=== PATIENT | male | born 1990 | race Caucasian/White ===

== ENCOUNTER 2017-11-07 17:56 | Emergency (ER) | payer OTHER ==
[2017-11-07 18:15] VITALS: BP 126/72
--- NOTE | 2017-11-07 19:29 | ED Physician Documentation ---
History of Present Illness - Stated complaint Stated Complaint: JAW PX - Chief complaint Chief Complaint: General - History obtained from History obtained from: Patient - History of Present Illness Timing: Other (For the last 12 days he had severe pain especially with chewing over the right TMJ and a feeling like his teeth do not match up correctly. He was seen by a dentist who felt there was nothing wrong and he is being referred to maxillofacial surgeon I think, but despite ibuprofen he has severe pain. There is no facial swelling or fever.) Review of Systems Constitutional: denies: Fever, Chills Nose: denies: Rhinorrhea / runny nose, Congestion Throat: denies: Sore throat Cardiac: denies: Chest pain / pressure, Palpitations PD PAST MEDICAL HISTORY - Past Medical History Past Medical History: Yes Cardiovascular: None Respiratory: None Neuro: None Endocrine/Autoimmune: None GI: None : None HEENT: None Psych: None Musculoskeletal: None Derm: None - Past Surgical History Past Surgical History: Yes - Present Medications Home Medications: Ambulatory Orders Medication Instructions Recorded Confirmed HYDROcod/ACETAM 5/325 [[place] 5/325] 1 - 2 ea PO Q6H PRN #15 tablet 11/07/17 - Social History Does the pt smoke?: No Smoking Status: Never smoker Does the pt drink ETOH?: Yes ETOH Use: Wine, Beer, Liquor Does the pt have substance abuse?: Yes - Immunizations Immunizations are current?: Yes - POLST Patient has POLST: No PD ED PE NORMAL - Vitals Vital signs reviewed: Yes - General General: Alert and oriented X 3, No acute distress - HEENT HEENT: Ears normal, Other (I do not see any malocclusion of the teeth, he has a lot of fillings but nothing that looks acute and there are no tender teeth. Range of motion of the jaw is full and there is some no sublingual edema. No swelling over the face but he is tender over the right TMJ.) - Neck Neck: Supple, no meningeal sign, No bony TTP - Neuro Neuro: Alert and oriented X 3, Normal speech - Psych Psych: Normal mood, Normal affect Results - Vitals Vitals: Vital Signs - 24 hr 11/07/17 18:05 Temperature 36.9 C Heart Rate 98 Respiratory 16 Rate Blood Pressure 126/72 O2 Saturation 98 Oxygen O2 Source Room air Procedures - General procedure General procedure: We did a diagnostic/therapeutic injection of about 0.5 mL of 1% lidocaine with epinephrine into the right TMJ after prep which gave him about 50% but not complete relief. PD MEDICAL DECISION MAKING - Sepsis Event Vital Signs: Vital Signs - 24 hr 11/07/17 18:05 Temperature 36.9 C Heart Rate 98 Respiratory 16 Rate Blood Pressure 126/72 O2 Saturation 98 Oxygen O2 Source Room air Departure - Departure Disposition: 01 Home, Self Care Clinical Impression: Sprain of jaw, right side, sequela Condition: Good Record reviewed to determine appropriate education?: Yes Prescriptions: HYDROcod/ACETAM 5/325 [[place] 5/325] 1 - 2 ea PO Q6H PRN #15 tablet PRN Reason: Pain Comments: Follow-up with the oral surgeon as instructed after referral from the [facility]. Return for new or worsening symptoms. Do not drink or drive while taking narcotic pain medication. Note that many narcotic pain relievers also contain Tylenol/acetaminophen. Please ensure that your total dose of acetaminophen from all sources does not exceed 3 g (3000 mg) per day. You may get constipated while on this medication. Take a stool softener such as Colace twice a day while you are on it. Also add an [id number] laxative such as senna or MiraLAX on any day that you do not have a bowel movement. If you received a narcotic pain medication or sedative while in the emergency department, do not drive for the next 24 hours.
[2017-11-07] MEDS ORDERED: LIDOCAINE 1%-EPI 1:100000 30 ML MDV ONE (19:38)
[2017-11-07] MEDS ORDERED: HYDROcod/ACETAM 5/325 MG TABLET PO STA (19:43)
== END 2017-11-07 19:51 | disposition home or self-care (01) ==
LOC: EDBD → ED 17:56
DX: S03.41XS Sprain of jaw, right side, sequela (principal); X58.XXXS Exposure to other specified factors, sequela
CPT/HCPCS: 99283; A9270

== ENCOUNTER 2018-03-29 12:08 | Emergency (ER) | payer OTHER ==
[2018-03-29] MEDS ORDERED: DEXAMETHASONE 10 MG/ML VIAL PO STA (14:32)
--- NOTE | 2018-03-29 14:34 | ED Physician Documentation ---
PD HPI URI - Stated complaint Stated Complaint: THROAT PX - Chief complaint Chief Complaint: Heent - Additional information Additional information: 27-year-old male presents the emergency department with 3 days of nasal congestion, sore throat and bilateral ear pain. The patient's sore throat has gradually increased and reports pain with swallowing. The patient reports chills and weakness. No significant improvement with [id number] therapy. No other associated symptoms. Symptoms are described as moderate Review of Systems Constitutional: reports: Chills, Fatigue. denies: Fever Eyes: denies: Discharge Ears: reports: Ear pain Nose: reports: Congestion Throat: reports: Sore throat Cardiac: denies: Palpitations Respiratory: denies: Cough : denies: Dysuria Skin: denies: Rash PD PAST MEDICAL HISTORY - Past Medical History Cardiovascular: None Respiratory: None Neuro: None Endocrine/Autoimmune: None GI: None : None HEENT: None Psych: None Musculoskeletal: None Derm: None - Past Surgical History Past Surgical History: Yes - Present Medications Home Medications: Ambulatory Orders Medication Instructions Recorded Confirmed No Known Home Medications 03/29/18 03/29/18 - Allergies Allergies/Adverse Reactions: Allergies Allergy/AdvReac Type Severity Reaction Status Date / Time No Known Drug Allergies Allergy Verified 03/29/18 12:33 - Social History Does the pt smoke?: No Smoking Status: Never smoker Does the pt drink ETOH?: Yes Does the pt have substance abuse?: Yes - Immunizations Immunizations are current?: Yes - POLST Patient has POLST: No PD ED PE NORMAL - General General: Alert and oriented X 3, No acute distress - HEENT HEENT: Atraumatic, PERRL, EOMI, Ears normal - Neck Neck: Supple, no meningeal sign - Cardiac Cardiac: RRR, Strong equal pulses - Respiratory Respiratory: No respiratory distress - Extremities Extremities: No deformity - Neuro Neuro: Alert and oriented X 3, Normal speech - Psych Psych: Normal mood PD ED PE EXPANDED - HEENT HEENT: PERRL, Pupils unequal, EOMI, Ears normal, Moist mucous membranes, Pharyngeal erythema. No: Swollen tonsils, Tonsillar exudate, Soft palate petecchiae, CAD SPECIALIST, Dentition normal, Dental abscess Results - Vitals Vitals: Vital Signs - 24 hr 03/29/18 12:32 Temperature 37.3 C Heart Rate 94 Respiratory 15 Rate Blood Pressure 130/65 O2 Saturation 97 Oxygen O2 Source Room air - Labs Labs: Laboratory Tests 03/29/18 12:30 Group A Strep Rapid Negative PD MEDICAL DECISION MAKING - ED course ED course: The patient's symptoms seem to be secondary to a viral etiology, the patient appears appropriate for discharge and ongoing outpatient management. I discussed with him the findings and plan. I recommend returning for any worsening or concerns. Departure - Departure Disposition: 01 Home, Self Care Clinical Impression: Viral pharyngitis Condition: Good Instructions: ED Pharyngitis Viral Follow-Up: RICKIE THOMAS PA-C [Primary Care Provider] - Within 1 week Comments: Please return to the emergency department for worsening symptoms or any concerns.
[2018-03-29] MEDS ORDERED: CHERRY SYRUP 10 ML UDC PO ONE (14:37)
[2018-03-29 14:47] VITALS: BP 133/85
== END 2018-03-29 14:46 | disposition home or self-care (01) ==
LOC: ED 12:08
DX: J02.9 Acute pharyngitis, unspecified (principal)
CPT/HCPCS: 87070; 87077; 87430; 99283; A9270